=== PATIENT | female | born 1935 | race Caucasian/White ===

== ENCOUNTER 2017-12-26 07:58 | Emergency (ER) | payer OTHER ==
[2017-12-26 08:19] VITALS: RESP 16; O2SAT 97
--- NOTE | 2017-12-26 08:33 | EDPHY ---
H & P Stated Complaint: fell out of wc hit head no loc Source: Patient, EMS - Personal History Current Tetanus/Diphtheria Vaccine: Unsure Current Tetanus Diphtheria and Acellular Pertussis (TDAP): Unsure - Medical/Surgical History Hx Asthma: No Hx Chronic Respiratory Disease: No Hx Diabetes: No Hx Cardiac Disease: Yes Hx Renal Disease: No Hx Cirrhosis: No Hx Alcoholism: No Hx HIV/AIDS: No Hx Splenectomy or Spleen Trauma: No Other PMH: a fib. htn dementia - Social History Smoking Status: Never smoked Time Seen by Provider: 12/26/17 08:02 HPI/ROS: CHIEF COMPLAINT: Mechanical fall, forehead laceration HISTORY OF PRESENT ILLNESS: The patient is brought in by paramedics. Her history is limited by dementia. By report she was in her wheelchair and fell onto the floor today. There was no loss of consciousness. She sustained a 3 cm laceration over her left eyebrow. In the emergency department the patient is uncertain of the events precipitating her transport to the emergency department. She does complain of some mild scalp tenderness in the area of her laceration. She has mild complaints of neck pain. She denies any chest pain, shortness of breath, back pain or additional extremity complaints. By report there has been no history of fever, vomiting or additional illness. REVIEW OF SYSTEMS: A comprehensive 10 point review of systems is otherwise negative aside from elements mentioned in the history of present illness. (Rogelio Newby) - Physical Exam Exam: General Appearance: Alert, no distress Head: 3 cm laceration on forehead above right eyebrow Eyes: Pupils equal, round, reactive ENT, Mouth: No hemotympanum, no oral trauma Neck: Minimal posterior cervical tenderness noted, poorly localized. Cervical collar present upon arrival. Respiratory: No chest wall tender, subcutaneous air, lungs clear bilaterally Cardiovascular: Regular rate and rhythm Abdomen: Abdomen is soft and nontender, pelvis stable Skin: No lacerations, No abrasion Back: No midline T/L/S pain Extremities: Nontender, full range of motion Neurological: A& O x1, likely baseline, GCS 15, 5/5 strength noted all 4 extremities (Rogelio Newby) Constitutional: Initial Vital Signs Temperature (C) 36.9 C 12/26/17 08:13 Heart Rate 72 12/26/17 08:13 Respiratory Rate 16 12/26/17 08:13 Blood Pressure 167/89 H 12/26/17 08:13 O2 Sat (%) 97 12/26/17 08:13 O2 Delivery Mode Room Air Allergies/Adverse Reactions: amoxicillin Allergy (Verified 12/26/17 08:10) codeine Allergy (Verified 12/26/17 08:10) Home Medications: Medication Instructions Recorded Aspirin 81mg (*) 12/26/17 Diltiazem 12/26/17 Flomax 12/26/17 Medical Decision Making - Diagnostics Imaging Results: Imaging Impressions Head CT 12/26/17 08:21 Impression: 1. No acute intracranial findings. 2. Diffuse cerebral atrophy with periventricular and subcortical low attenuation consistent with chronic microvascular ischemic gliosis. Procedures: Procedure: Laceration repair. I was requested by Dr. Newby to perform wound closure I explained the indications, risks and benefits for both laceration repair and anesthetic administration. Verbal consent was obtained from the patient . The 3 cm laceration on the left lateral eyebrow was anesthetized using 0.5% bupivicaine with epinephrine . After anesthetic administered the patient was observed for a period of time and had no apparent adverse effects. The wound was cleaned, prepped, draped in normal sterile fashion and explored to its base. No foreign body seen, no foreign bodies palpated. There were no deep structures involved. The wound was repaired with 6 simple interrupted 6 0 Prolene sutures. The wound repair was simple. The procedure was performed by myself. Patient has been informed that scarring will occur, although efforts have been made to minimize this. (Talat Tavares) ED Course/Re-evaluation: The patient presents to the ED for evaluation of head trauma following a mechanical fall. Given her dementia and age with findings of trauma on exam and complaints of headache and neck pain a CT scan of the head and cervical spine were ordered. There is no evidence of an acute traumatic injury noted. She does have a thyroid nodule which the radiologist recommends following up as an outpatient in the next several weeks for an ultrasound. The patient's laceration was repaired by the physician marketing assistant under my supervision in the emergency department. She is not anticoagulated for her chronic atrial fibrillation. I re-evaluated the patient at 9:40 a.m.. I have discussed the results of her workup with her . The patient will be discharged from the emergency department with plans to return for suture removal in 5 days. She should follow up with her primary care provider regarding the thyroid nodule. She is discharged home with customary aftercare instructions and return precautions. (Rogelio Newby) Differential Diagnosis: Differential diagnosis considered includes intracranial hemorrhage, skull fracture, laceration, cervical spine fracture, spinal cord injury (Rogelio Newby) Departure - Departure Disposition: Home, Routine, Self-Care Clinical Impression: Facial laceration, Dementia Condition: Good Instructions: Laceration (ED) Additional Instructions: 1. Return to the emergency department in 5 days for suture removal. 2. Please schedule a follow-up appointment with your regular physician to review your CT scan. Our radiologist does recommend obtaining an outpatient ultrasound of a nodule seen in the thyroid today. 3. Apply antibiotic ointment twice daily to sutures. 4. Please return to the ED for severe headache, vomiting, abnormal behavior or other concerns.
[2017-12-26 10:30] VITALS: BP 158/85; PULSE 76; TEMP 97.7
== END 2017-12-26 10:30 | disposition home or self-care (01) ==
LOC: EDUNIT# → EDBD 07:58
PROC: 0HQ1XZZ Repair Face Skin, External Approach (ICD-10-PCS; principal; 2017-12-26)
DX: S01.81XA Laceration without foreign body of other part of head, initial encounter (principal); I10 Essential (primary) hypertension; W05.0XXA Fall from non-moving wheelchair, initial encounter